=== PATIENT | male | born 1945 | race Caucasian/White ===

== ENCOUNTER 2022-03-10 21:31 | Emergency (ER) | payer OTHER ==
[~2022-03-10] VITALS: Ht 170.2 cm; Wt 65.8 kg
[2022-03-10 21:32] VITALS: BP_SYST 137
--- NOTE | 2022-03-10 21:50 | NUR ---
Pt BIB [facility] d/t c/o non radiating Chest pain that has been on/off x2 days. 3 hours prior to calling 911 pt experienced CP again and took Nitro at home x2 with mild relief. Pt was given Nitro en route to ED, last dose @ 2124. CP is non radiating. Reports hx of High cholesterol. Arrived to ED in stable condition. Verbally responsive; A/O x4. Breathing adequately on RA. Addendum: 03/10/22 at 2222 by [email or web address] Denies CP at this time.
--- NOTE | 2022-03-10 21:52 | NUR ---
[facility] at bedside for imaging.
[2022-03-10 22:20] LABS: BASOPHILS # (AUTO) 0.1 K/uL (0.0-0.2); BASOPHILS % (AUTO) 1.6 % (0.0-2.0); EOSINOPHILS # (AUTO) 0.4 K/uL (0.0-0.4); EOSINOPHILS % (AUTO) 6.2 % (0.0-4.0); HEMATOCRIT 44.6 % (36-54); HEMOGLOBIN 15.1 g/dL (14.0-18.0); LYMPHOCYTES # (AUTO) 2.2 K/uL (1.0-5.5); LYMPHOCYTES % (AUTO) 35.8 % (20.5-51.5); MEAN CORPUSCULAR HEMOGLOBIN 30 pg (27-31); MEAN CORPUSCULAR HGB CONC 34 % (32-36); MEAN CORPUSCULAR VOLUME 88 fL (79.0-98.0); MONOCYTES # (AUTO) 0.5 K/uL (0.0-1.0); MONOCYTES % (AUTO) 9.1 % (1.7-9.3); NEUTROPHILS # (AUTO) 2.9 K/uL (1.8-7.7); NEUTROPHILS % (AUTO) 47.3 % (40.0-70.0); PLATELET COUNT (AUTO) 157 K/uL (130-430); RED BLOOD CELL COUNT(AUTO) 5.06 MIL/uL (4.2-6.2); RED CELL DISTRIBUTION WIDTH 14.9 % (9.0-15.0)
[2022-03-10 22:21] LABS: ANION GAP 5 (5-15); CHLORIDE 105 mmol/L (98-107); CREATININE 1.35 mg/dL (0.55-1.30); GLUCOSE 102 mg/dL (70-99); POTASSIUM 4.3 mmol/L (3.5-5.1); SODIUM SERUM 140 mmol/L (136-145); UREA NITROGEN, BLOOD 16 mg/dL (8-21)
[2022-03-10 22:29] LABS: ALANINE AMINOTRANSFERASE 29 U/L (12-78); ALBUMIN 3.5 g/dL (3.4-4.8); ASPARTATE AMINOTRANSFERASE 21 U/L (10-37); TOTAL BILIRUBIN 0.3 mg/dL (0.0-1.0)
[2022-03-10] MEDS ORDERED: NITROGLYCERIN 1 INCH (GM) OINT. TP ONE (23:15)
--- NOTE | 2022-03-11 00:34 | NUR ---
Pt resting in bed, denies any onset of chest pain at this time. Breathing adequately on RA. Ambulated to restroom; miriam well.
[2022-03-11] MEDS ORDERED: CLOP75TA32 PO (01:08)
[2022-03-11] MEDS ORDERED: ISOS30TA85 PO (01:08)
[2022-03-11] MEDS ORDERED: CLOPIDOGREL BISULFATE 75 MG TABLET PO ONE (01:15)
--- NOTE | 2022-03-11 01:29 | NUR ---
Patient given written and verbal discharge instructions and verbalizes understanding. ER MD Lewis discussed with patient the results and treatment provided. Patient in stable condition. ID arm band removed. IV catheter removed intact and dressing applied, no active bleeding. Rx of Plavix and Imdur sent to pharmacy of choice. Patient educated on pain management and to follow up with [facility]. Pain Scale 0/10. Opportunity for questions provided and answered. Medication side effect fact sheet provided.
[2022-03-11 01:31] VITALS: BP_SYST 132
== END 2022-03-11 01:25 | disposition home or self-care (01) ==
LOC: SED 21:31
DX: I20.9 Angina pectoris, unspecified (principal); K35.32 Acute appendicitis with perforation, localized peritonitis, and gangrene, without abscess; Z20.822 Contact with and (suspected) exposure to COVID-19
CPT/HCPCS: 36415; 71045; 80053; 83880; 84484; 85025; 85610-TC; 85730-TC; 93005; 99285